=== PATIENT | female | born 1980 ===

== ENCOUNTER 2025-05-25 11:21 | Emergency (ER) | payer SELFPAY ==
[2025-05-25 11:24] VITALS: BP 128/89
[2025-05-25 11:25] VITALS: BP 128/89
--- NOTE | 2025-05-25 11:58 | EDRN ---
Ghazal Ferrari COMBER FIXER is currently at the pts bedside, the pt is refusing to change into a gown, does not want to speak to this RN and called this RN 'disgusting', provider notified
--- NOTE | 2025-05-25 12:03 | EDRN ---
the pt provided a urine sample and is agreeable to is being sent to the lab, this RN asked the pt if it was okay if this RN obtained vital signs and the pt is refusing, provider notified
--- NOTE | 2025-05-25 12:12 | ED.GENMED ---
History of Present Illness
General
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
Source: patient
Exam Limitations: none
Time Seen by Provider: 05/25/25 11:56
Nursing documentation reviewed up to this point in time: agreed with
History of Present Illness
History of Present Illness:
Patient is a 45-year-old female presents to the ER for evaluation. During my exam patient is requesting a test. She reports that she started bleeding this a.m. which was heavier than a typical period and her last normal period was 4
months ago. She is unsure if this is her menses or she is . She is adamant that at this time she only wants a test. She has had some lower abdominal cramping and back pain but denies currently
Patient reports she has had type pregnancies 5 miscarriages.
Phy Exam
General Physical Exam
General Presentation: no apparent distress
General Skin: warm and dry
General Habitus: normal
General Mental: alert
Gastrointestinal Exam
Gastrointestinal Exam: non tender and soft
Neurological Exam
Neurological Exam: alert
Musculoskeletal Exam
Musculoskeletal Exam: full ROM
Skin Exam
Skin Exam: normal color and warm/dry
Psychiatric Exam
Psychiatric Exam: normal mood/affect
Course
Orders/Labs/Results
Orders:
Orders
05/25/25 12:00
Test Result ONCE
05/25/25 12:03
HCG, Urine Qualitative Screen Urgent
Date Specimen was Collected: 05/25/25
Time Specimen was Collected: 12:00
Vital Signs
Initial and Last Documented VS:
Initial Vital Signs
Pulse Resp BP Pulse Ox
79 15 128/89 98
05/25/25 11:24 05/25/25 11:24 05/25/25 11:24 05/25/25 11:24
Last Documented Vital Signs
Temp Pulse Resp BP Pulse Ox
98.2 F 85 15 128/89 98
05/25/25 11:25 05/25/25 11:25 05/25/25 11:25 05/25/25 11:25 05/25/25 12:13
MDM/Problems Addressed
Differential Diagnosis Includes:
Not limited to menses, vaginal bleeding,
MDM/Problems Addressed:
Patient is a 45-year-old female who is requesting a test on arrival. She started bleeding and was not sure if she was . hCG is negative.
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
She wants no further treatment she has no complaints of abdominal pain presently.
vital signs are stable no acute distress well-appearing
discussed to follow up with her OBGYN
*Pulse Oximetry
SaO2: 98
Oxygen Mode of Delivery: Room air
Patient hypoxic: no
*Critical Care Note
Total Time (30-74mins, 75-104mins- exclusive of procedures): Not Applicable
ED Attending Note
-
Portions of this chart may have been created with voice recognition software.� Occasional wrong word or��sound alike� substitutions may have occurred due to the inherent limitations of voice recognition software.
Discharge Plan
Departure
Patient Disposition: Home (Routine Discharge)
Date of Disposition: 05/25/25
Time of Disposition: 12:24
Patient with high blood pressure during this ER visit?: Yes
Condition: Fair
Covid-19: Not Applicable
Discharge Problem:
Vaginal bleeding
Prescriptions:
No Action
No Current Medications
0
Activity Restrictions/Additional Instructions:
As discussed you were seen here for vaginal bleeding. Your urine test was negative. Please follow closely with your family doctor or building maintenance mechanic return if any worsening of symptoms
Interventions
Interventions:
*Risk Screen - Suicide Last Done: 05/25/25 11:24
*General Assessment Last Done: 05/25/25 11:24
*Neglect/Abuse Screening Last Done: 05/25/25 11:24
*ED- Fall Risk Assessment Last Done: 05/25/25 12:26
*ED COVID-19 Vaccine History Last Done: 05/25/25 12:26
*Nursing Disposition Last Done: 05/25/25 12:28
ED-Female Genitourinary Assessment Last Done: 05/25/25 12:28
Discharge Date and Time
Discharge Date/Time: 05/25/25 12:28
Print Language: CZECH
[2025-05-25 12:14] LABS: HCG, Urine Qualitative Screen Negative
[2025-05-25 12:26] VITALS: BMI 19.8
== END 2025-05-25 12:28 | disposition home or self-care (01) ==
LOC: EMR 11:21
PROVIDERS: Nurse Practitioner; EMERGENCY PHYSICIAN Emergency Medicine
DX: N93.9 Abnormal uterine and vaginal bleeding, unspecified (principal); R03.0 Elevated blood-pressure reading, without diagnosis of hypertension
CPT/HCPCS: 99283; 81025